=== PATIENT | female | born 1960 | race Two or more races ===

== ENCOUNTER 2019-12-08 12:57 | Day surgery (SDC) | payer OTHER ==
[~2019-12-08] VITALS: Ht 157.5 cm; Wt 69.8 kg
[2019-12-08] MEDS ORDERED: LACTATED RINGERS 1,000 ML IV SCH (13:25)
[2019-12-08] MEDS ORDERED: LIDOCAINE-MPF 1%, 2ML INFIL STA (13:29)
[2019-12-08] MEDS ORDERED: CHLORHEXIDINE 15 ML UDC MM ONE (13:30)
[2019-12-08] MEDS ORDERED: LIDOCAINE-MPF 1%, 2ML ONE (13:32)
[2019-12-08] MEDS ORDERED: SPIR25TA5 PO (13:34)
[2019-12-08] MEDS ORDERED: ASPI-515 PO (13:34)
[2019-12-08] MEDS ORDERED: CARV6.2512 PO (13:34)
[2019-12-08] MEDS ORDERED: EZET10TA70 PO (13:34)
[2019-12-08] MEDS ORDERED: SACU1TAB PO (13:34)
[2019-12-08] MEDS ORDERED: CLOP75TA52 PO (13:34)
[2019-12-08] MEDS ORDERED: ATOR40TA PO (13:34)
[2019-12-08] MEDS ORDERED: PLEASE ENTER HEIGHT AND WEIGHT MC SCH (13:36)
[2019-12-08 13:38] VITALS: BP 110/75
[2019-12-08] MEDS ORDERED: PANT40TA5 PO (13:56)
[2019-12-08 14:09] LABS: ALANINE AMINOTRANSFERASE 55 U/L (12-78); ALBUMIN 4.1 g/dL (3.4-5.0); ANION GAP 6 mmol/L (5-15); BASOPHILS # (AUTO) 0.07 x10^3/uL (0-0.1); BASOPHILS % (AUTO) 1 % (0-1); CALCIUM 9.2 mg/dL (8.5-10.1); CHLORIDE 107 mmol/L (98-107); CREATININE 0.94 mg/dL (0.55-1.02); EOSINOPHILS % (AUTO) 5 % (1-7); LYMPHOCYTES # (AUTO) 2.72 x10^3/uL (1-3.4); LYMPHOCYTES % (AUTO) 35 % (22-44); MD NO; MEAN CORPUSCULAR HEMOGLOBIN 31.6 pg (27.0-34.8); MEAN CORPUSCULAR HGB CONC 33.3 g/dL (32.4-35.8); MEAN CORPUSCULAR VOLUME 94.8 fL (80-100); MEAN PLATELET VOLUME 6.9 fL (7.4-10.4); MONOCYTES # (AUTO) 0.42 x10^3/uL (0.2-0.8); MONOCYTES % (AUTO) 5 % (2-9); NEUTROPHILS # (AUTO) 4.19 x10^3/uL (1.8-6.8); NEUTROPHILS % (AUTO) 54 % (42-75); PLATELET COUNT 288 x10^3/uL (130-400); RED BLOOD COUNT 4.76 x10^6/uL (3.82-5.3); RED CELL DISTRIBUTION WIDTH 13.4 % (9.6-15.2)
[2019-12-08 14:11] LABS: ALKALINE PHOSPHATASE 87 U/L (45-117); BILIRUBIN,TOTAL 1.8 mg/dL (0.2-1.0); TOTAL PROTEIN 8.1 g/dL (6.4-8.2)
[2019-12-08] MEDS ORDERED: PROPOFOL 10 MG/ML, 100ML IV ONE (15:47)
[2019-12-08] MEDS ORDERED: hydrALAzine 20 MG/ML, 1ML IV PRN (16:00)
[2019-12-08] MEDS ORDERED: HYDROmorphone 2 MG/ML, 1ML IVPush PRN (16:00)
[2019-12-08] MEDS ORDERED: KETOROLAC 30 MG/1 ML IV PRN (16:00)
[2019-12-08] MEDS ORDERED: FENTANYL PF 100 MCG/2ML IV PRN (16:00)
[2019-12-08] MEDS ORDERED: ALBUTEROL SULFATE 2.5 MG/3 ML NPPB PRN (16:00)
[2019-12-08] MEDS ORDERED: ACETAMINOPHEN 325 MG TABLET PO PRN (16:00)
[2019-12-08] MEDS ORDERED: LABETALOL 5MG/ML, 20ML IV PRN (16:00)
[2019-12-08] MEDS ORDERED: PROMETHAZINE 25 MG/ML, 1ML IV PRN (16:00)
[2019-12-08] MEDS ORDERED: DIAZEPAM 5 MG/ML, 2ML IVPush PRN (16:00)
[2019-12-08] MEDS ORDERED: OXYcodone 5 MG/5 ML ORAL.SOL UDC PO PRN (16:00)
[2019-12-08] MEDS ORDERED: MEPERIDINE/PF 25MG/0.5ML IVPush PRN (16:00)
== END 2019-12-08 17:15 | disposition home or self-care (01) ==
LOC: OR 12:57
PROVIDERS: ATTEND Internal Medicine Geriatric Medicine
DX: Z12.11 Encounter for screening for malignant neoplasm of colon (principal); Z11.59 Encounter for screening for other viral diseases; K63.5 Polyp of colon; K64.0 First degree hemorrhoids; R13.10 Dysphagia, unspecified; I25.10 Atherosclerotic heart disease of native coronary artery without angina pectoris; I10 Essential (primary) hypertension; E11.9 Type 2 diabetes mellitus without complications; K21.9 Gastro-esophageal reflux disease without esophagitis; Z79.82 Long term (current) use of aspirin; Z79.899 Other long term (current) drug therapy; Z98.890 Other specified postprocedural states
CPT/HCPCS: 43239; 43248; 45380; 80053; 82962; 85025; 87635; 88305; 93005; J2704; J7120